=== PATIENT | female | born 1980 | race Caucasian/White ===

== ENCOUNTER 2020-04-19 14:24 | Emergency (ER) | payer BC ==
[~2020-04-19] VITALS: Ht 170.2 cm; Wt 94.0 kg
--- NOTE | 2020-04-19 15:09 | NUR ---
Noted during triage pt had moments of apnea, responded to stimuli. Dr. Patton aware of all situation, does not want to do medications or labs at this time. Pt on end tidal CO2 monitoringl.
--- NOTE | 2020-04-19 16:28 | NUR ---
Dr Bahena made aware Spo2 dropped to 77% on room air with periords of apnea. Per MD will monitor patient longer at this time. Patient sleepy but arousable via verbal stimuli. Drowsy, speaks with eyes half closed.
--- NOTE | 2020-04-19 16:31 | NUR ---
Pt awake and alert, tolerating PO, talking to her on the phone
--- NOTE | 2020-04-19 16:42 | NUR ---
Billy [phone].
--- NOTE | 2020-04-19 17:13 | NUR ---
at bedside, aware of ctnd sedation
[2020-04-19] MEDS ORDERED: ondansetron/PF 4mg/2ml inj IV ONE (17:25)
[2020-04-19 20:01] VITALS: BP 124/96
== END 2020-04-19 20:02 | disposition home or self-care (01) ==
LOC: EEVIPCON 14:25 → ER 14:25
DX: T40.1X1A Poisoning by heroin, accidental (unintentional), initial encounter (principal); R53.83 Other fatigue; Z88.0 Allergy status to penicillin; Y92.89 Other specified places as the place of occurrence of the external cause
CPT/HCPCS: 93005; 96374; 99285; J2405